=== PATIENT | male | born 1950 | race Caucasian/White ===

== ENCOUNTER → 2016-10-23 | Outpatient (CLI) | payer OTHER ==
--- NOTE | ~2016-10-23 | 2DMMODE ---
[facility] [address] [place] [address] 2 D/M-MODE ECHOCARDIOGRAM Name: [facility] Room #: REG Marlon#: [id number] Admission: 10/23/16 Attend Phys: Byron Murray Discharge: Date of : 52 Date of Service: 10/23/16 1152 Report #: [id number] THIS REPORT FOR: //name// APPROVED REPORT Study performed: 10/23/2016 09:57:41 EXAM: Comprehensive 2D, Doppler, and color-flow Echocardiogram Patient Location: Out-Patient Status: routine Other Information Study Quality: Good Indications CAD 2D Dimensions RVDd: 38.26 mm LVEF(%): 60.05 (>50%) IVSd: 11.87 (7-11mm) LVOT Diam: 21.83 (18-24mm) LVDd: 35.10 mm PWd: 12.06 (7-11mm) Ascending Ao: 34.84 (22-36mm) LVDs: 24.14 (25-40mm) Aortic Root: 34.07 mm IVC: 1.80 mm Pereyra's LVEF: 60.05 % Volumes Left Atrial Volume (Systole) Single Plane 4CH: 57.80 mL Single Plane 2CH: 61.80 mL LA ESV Index: 34.00 mL/m2 Aortic Valve AoV Peak Chevy.: 1.34 m/s AO Peak Gr.: 7.13 mmHg LVOT Max P.00 mmHg LVOT Max V: 1.00 m/s CHEPE Vmax: 2.80 cm2 Mitral Valve E/A Ratio: 0.7 MV Decel. Time: 197.90 ms MV E Max Chevy.: 0.58 m/s MV A Chevy.: 0.87 m/s MV PHT: 57.39 ms IVRT: 96.89 ms [facility] [address] [place] [place] [address] 2 D/M-MODE ECHOCARDIOGRAM Name: [facility] Room #: DONATO Mason#: [id number] Admission: 10/23/16 Attend Phys: Byron Murray Discharge: Date of : 52 Date of Service: 10/23/16 1152 Report #: [id number] Pulmonary Valve PV Peak Chevy.: 1.13 m/s PV Peak Gr.: 5.13 mmHg Pulmonary Vein P Vein S: 0.65 m/s P Vein A: 0.24 m/s P Vein D: 0.45 m/s P Vein A Dur.: 73.8 msec P Vein S/D Ratio: 1.44 Tricuspid Valve RAP Estimate: 5.00 mmHg Left Ventricle The left ventricle is normal size. There is normal LV segmental wall motion. Borderline concentric left ventricular hypertrophy. The left ventricular systolic function is normal. The left ventricular ejection fraction is within the normal range. LVEF is 60%. Grade I - abnormal relaxation pattern. Right Ventricle The right ventricle is normal size. The right ventricular systolic function is normal. Atria The left atrium size is normal. The right atrium size is normal. Aortic Valve Aortic valve leaflets are mildly thickened. No aortic regurgitation is present. There is no aortic valvular stenosis. Mitral Valve The mitral valve is normal in structure. Trace mitral regurgitation. No evidence of mitral valve stenosis. Tricuspid Valve The tricuspid valve is normal in structure. There is no tricuspid valve regurgitation noted. Pulmonic Valve The pulmonary valve is normal in structure. There is no pulmonic valvular regurgitation. Great Vessels The aortic root is normal in size. The ascending aorta is normal in size. IVC is normal in size and collapses >50% with [facility] [address] [place] [address] 2 D/M-MODE ECHOCARDIOGRAM Name: [facility] Room #: DONATO Mason#: [id number] Admission: 10/23/16 Attend Phys: Byron Murray Discharge: Date of : 52 Date of Service: 10/23/16 1152 Report #: [id number] inspiration. Pericardium There is no pericardial effusion. <Conclusion> The left ventricle is normal size. LVEF is 60%. Aortic valve leaflets are mildly thickened. No aortic regurgitation is present. There is no aortic valvular stenosis. The mitral valve is normal in structure. Trace mitral regurgitation. The tricuspid valve is normal in structure. The pulmonary valve is normal in structure. <ELECTRONICALLY SIGNED> By: Byron Cohen MD 10/23/16 1152 1152 115 Byron Cohen MD /INF
== END ==
LOC: CV 09:41
DX: I25.10 Atherosclerotic heart disease of native coronary artery without angina pectoris (principal); R60.9 Edema, unspecified